=== PATIENT | male | born 1955 | race Caucasian/White ===

== ENCOUNTER 2023-07-15 18:45 | Emergency (ER) | payer MEDICARE, SELFPAY ==
--- NOTE | ~2023-07-15 | CT_ITS ---
EXAMINATION: CT ABDOMEN AND PELVIS WITH CONTRAST CLINICAL INFORMATION: FL upper quadrant abdominal pain COMPARISON: None available. TECHNIQUE: Multidetector volumetric images were obtained from the superior aspect of the liver through the pubic symphysis following administration 85 mL of Omnipaque 350 intravenous contrast. Sagittal and coronal reformatted images were obtained on the technologist's workstation. Oral contrast: No This CT examination was performed using dose optimization techniques as appropriate, variously including the following: *Automated exposure control *Adjustment of mA and/or kV according to patient size (this includes techniques or standardized protocols for targeted exams where dose is matched to indication/reason for exam; i.e. extremities or head) *Use of iterative reconstruction technique DLP: 579 mGy-cm FINDINGS: LUNG BASES: The visualized lung bases are unremarkable. There is moderate coronary artery calcification. LIVER, GALLBLADDER, AND BILIARY TREE: The liver is normal in size, shape, and attenuation. No focal hepatic lesion or biliary ductal dilatation is present. The gallbladder is unremarkable with no evidence of radiopaque gallstones, gallbladder wall thickening, or obvious pericholecystic inflammatory changes. PANCREAS: Unremarkable. SPLEEN: Unremarkable. ADRENAL GLANDS: There is a 7 mm nodular changes in left adrenal gland. The right adrenal gland is unremarkable. KIDNEYS AND URETERS: The kidneys are normal in size, shape, and attenuation. No hydronephrosis, hydroureter, or calculi seen. No perinephric stranding. There is a 1 cm hypodensity in the midpole left kidney measuring -4 Hounsfield units likely small cyst. BLADDER: The bladder is nondistended with thickening of the posterior wall and the base. The posterolateral measures 7 mm in the base measures 1.4 cm thick. GASTROINTESTINAL TRACT: There is a large amount of stool seen in the colon without significant distention. The small bowel loops are normal caliber. Appendix is normal caliber. ABDOMINAL WALL: No significant hernia is appreciated. A prominent left inguinal canal containing descending/sigmoid colon in the proximal inguinal ring is noted. LYMPH NODES: Normal. VASCULAR: There is aortic graft stent starting from the mid abdominal aorta and extending to the common iliac arteries. Known mild aneurysmal dilatation of mid abdominal aorta measuring 3.3 x 3.4 cm on axial slice 41/95 is noted. PELVIC VISCERA: The prostate gland appears minimally enlarged extending into the base of bladder. OSSEOUS STRUCTURES: There is L5 superior endplate deformity of indeterminate age. CT/CT abdomen pelvis w IV con IMPRESSION: 1. No acute intra-abdominal process seen. 2. Moderate constipation. Moderate stool is seen within the transverse colon and along the hepatic and splenic flexure. 3. Mild prostate enlargement extending into the base of bladder. There is thickening of base and posterior bladder wall. Recommend cystoscopy for further evaluation. 4. Abdominal aortic aneurysm with aortic graft stent in place. 5. Small left adrenal 7 mm nodule. 6. Left inguinal hernia inguinal canal hernia containing junction of descending and sigmoid colon destini the proximal inguinal ring Fleischner guidelines were followed.
[2023-07-15 19:37] VITALS: BP 137/75; PULSE 66; RESP 18; TEMP 36.9; O2SAT 96; BMI 24.3
--- NOTE | 2023-07-15 19:38 | ED.GENADULT ---
HPI - General Adult General Chief complaint: Abdominal Pain Stated complaint: needs ct per dr Time Seen by Provider: 07/15/23 20:53 Source: patient, RN notes reviewed and old records reviewed Mode of arrival: ambulatory Limitations: no limitations History of Present Illness HPI narrative: 68-year-old male with past medical history significant for coronary artery disease, CVA, diabetes presents for evaluation of left upper abdominal pain. Patient reports his pain started 5 days ago His pain is in his left upper abdomen it does not radiate He denies any chest pain, cough, shortness of breath He describes the pain as burning Denies any nausea or vomiting but endorses constipation Patient reports a history of appendectomy but denies any other abdominal surgical history He saw his primary doctor today who referred him to the ER for ?a CT scan. Patient took lactulose for constipation without any improvement is constipation. Related Data Previous Rx's Medication Instructions Recorded peg 3350-electrolytes 236 240 ml PO Q10M PRN constipation 07/15/23 gram-22.74 gram-6.74 gram-5.86 #4,000 mL gram solution (GaviLyte-G) polyethylene glycol 3350 17 17 g PO DAILY PRN constipation 07/15/23 gram/dose oral powder (Miralax) #238 grams Allergies Allergy/AdvReac Type Severity Reaction Status Date / Time No Known Allergies Allergy Verified 07/15/23 19:43 Review of Systems Constitutional: Constitutional: Denies chills, Denies fever(s) and Denies headache(s) ENT: Denies headache(s) Gastrointestinal: Gastrointestinal: Reports abdominal pain, Reports constipation, Denies nausea and Denies vomiting Musculoskeletal: Musculoskeletal: Denies back pain Integumentary/Breasts: Skin/Breast: Denies rash Neurologic: Denies headache(s) PMFSH Social History Social History Advance Directives: No Advance Directives Information Provided: Yes Physical Exam ED Vital Signs: Vital Signs - 24 hr 07/15/23 19:37 07/15/23 20:31 07/15/23 22:17 Temperature 98.5 F 98.3 F Pulse Rate 66 67 56 Respiratory Rate 18 17 16 Blood Pressure 137/75 152/76 H 118/60 Pulse Oximetry 96 95 96 Oxygen Delivery Method Room Air Room Air Room Air BMI result Body Mass Index 24.3 Const General: healthy appearing, comfortable, no acute distress, alert and awake Nutritional Appearance: well nourished Orientation/consciousness: patient oriented x3 HENMT Head: Yes normocephalic and Yes atraumatic Eyes Eyelids: Yes eyelids normal Conjunctivae: conjunctivae normal Sclerae: sclerae normal Corneas: corneas normal Pupils: Equal, round and reactive pupils present EOM: EOMs intact bilaterally Neck Neck: Yes full ROM Resp Effort & Inspection: normal respiratory effort, able to speak in complete sentences and not labored Cardio Rate: regular rate Rhythm: regular rhythm GI Inspection: No distended Palpation (GI): Soft to palpation, not firm, Tenderness to palpation present (GI) in the LLQ, in the LUQ and in the RUQ; not in the RLQ and Guarding due to palpation present (GI) Auscultation: normoactive bowel sounds Skin General skin exam: no rashes or lesions noted and elasticity normal Neuro General: patient oriented x3 Cranial nerves: Yes Equal, round and reactive pupils present and Yes Bilaterally intact EOM present Cognition (Neuro): normal cognition Extrem Other: Moving all extremities well without any obvious deformities Course Course Course Narrative: RME: 68 yo M w/PMHx CABG, CVA, DM, On Plavix c/o LUQ abdominal pain since Wednesday w/constipation w/o BM. Is passing flatus. Denies vomiting, fever or urine sx, melena abdomen soft w/LUQ ttp EKG, labs, UA, CT ordered Full HPI, ROS and PE to be performed by primary ED provider. Reevaluation(s) Reevaluation #1: Patient's CT scan finding discussed with the patient, he will be discharged with Sharif Time: 23:27 Medications Administered Discontinued Medications Generic Name Dose Route Start Last Admin Trade Name Freq PRN Reason Stop Dose Admin Sodium Chloride 1,000 mls @ 999 mls/hr 07/15/23 21:15 07/15/23 22:26 Ns IV 07/15/23 22:15 Infused .Q1H1M SLADE Infusion Iohexol 100 ml 07/15/23 21:08 07/15/23 21:09 Iohexol 350 Mg/Ml 100 Ml Infus..Btl IV 07/15/23 21:09 85 ml ONCE ONE Administration Morphine Sulfate 4 mg 07/15/23 21:02 07/15/23 21:16 Morphine Sulfate 4 Mg/Ml Cartridge IVPUSH 07/15/23 21:03 4 mg ONCE ONE Administration Protocol Ondansetron HCl 4 mg 07/15/23 21:02 07/15/23 21:16 Ondansetron Hcl 4 Mg/2 Ml Vial IVPUSH 07/15/23 21:03 4 mg ONCE ONE Administration Medical Decision Making Medical Decision Making [facility] Narrative: 60-year-old male presents for evaluation of severe abdominal pain. He is quite tender on exam with guarding. There is no abdominal distension of firmness, however will get a CT scan of the abdomen pelvis. The patient had bowel movement 5 days in denies passing sinus. There is concern for obstruction. Differential Diagnosis Differential Diagnoses: The differential diagnosis associated with the presentation includes Constipation Small bowel obstruction Ileus Colitis Diverticulitis Bowel perforation Admission/Observation Consideration of admission/observation: Escalation of care including admission/observation considered However CT scan did not show any surgical pathology or severe medical pathology Lab Data [facility] Lab Attestation statement: I reviewed the patient's lab results. No leukocytosis working 8.6. Mild anemia hemoglobin 12.1 and hematocrit 34.9. Electrolytes within normal limits. CO2 is slightly elevated test 30. Patient's BUN is 27 with a creatinine of 94. 07/15/23 20:23 07/15/23 20:23 Labs: Lab Results 07/15/23 07/15/23 07/15/23 Range/Units 20:23 20:23 20:23 WBC 8.6 (4.8-10.8) X10*3/uL RBC 4.07 L (4.60-5.80) X10*6/uL Hgb 12.1 L (14.0-18.0) g/dl Hct 34.9 L (42.0-52.0) % MCV 85.7 (80.0-98.0) fL MCH 29.7 (27.0-33.0) pg MCHC 34.7 (31.0-36.0) g/dl RDW 12.5 (11.0-16.0) % Plt Count 138 L (160-400) X10*3/uL MPV 10.2 (9.4-12.4) fL Immature Gran % (Auto) 0.2 (0.0-0.4) % Neut % (Auto) 59.1 (45-73) % Lymph % (Auto) 28.5 (20-40) % [place] % (Auto) 10.4 (2-11) % Eos % (Auto) 1.5 (0-4) % Baso % (Auto) 0.3 (0-2) % Lymph # (Auto) 2.5 (1.2-4.9) X10*3/uL [place] # (Auto) 0.9 (0.1-1.2) X10*3/uL Eos # (Auto) 0.1 (0.0-0.4) X10*3/uL Baso # (Auto) 0.0 (0.0-0.2) X10*3/uL Abs Immat Gran (auto) 0.02 (0.00-0.03) X10*3/uL Absolute Neuts (auto) 5.1 (2.0-8.3) x10*3/uL Absolute Nucleated RBC 0.000 (0.0-0.012) X10*3/uL Nucleated RBC % (auto) 0.0 (0.0-0.2) /100WBC PT 13.0 (11.1-13.3) SEC INR 1.1 (0.9-1.1) Sodium 137 (135-145) mmol/L Potassium 4.5 (3.3-5.1) mmol/L Chloride 101 (96-108) mmol/L Carbon Dioxide 30 H (22-29) mmol/L Anion Gap 11 L (12-20) BUN 27 H (9-16) mg/dL Creatinine 0.94 (0.5-1.4) mg/dL Estim Creat Clear Calc 82.5 Estimated GFR > 60 Random Glucose 112 (60-115) mg/dL Calcium 9.6 (8.4-10.2) mg/dL Magnesium 2.1 (1.6-2.6) mg/dL Total Bilirubin 0.3 (0.0-1.0) mg/dL Direct Bilirubin 0.1 (0.0-0.5) mg/dL AST 16 (5-37) U/L ALT 13 (0-40) U/L Alkaline Phosphatase 74 (39-117) U/L Total Protein 7.2 (6.5-8.0) g/dL Albumin 4.1 (3.5-5.0) g/dL Lipase 13 (8-78) U/L Urine Color Urine Appearance Urine pH (5.0-9.0) Ur Specific Crystal (1.005-1.025) Urine Protein (Neg-Trace) mg/dL Urine Glucose (UA) (Negative) mg/dL Urine Ketones (Negative) mg/dL Urine Blood (Negative) Urine Nitrite (Negative) Ur Leukocyte Esterase (Negative) Urine RBC (0-2) /HPF Urine WBC (0-5) /HPF Ur Squamous Epith Cells (0-2) /HPF Urine Bacteria (None Seen) Hyaline Casts (0-2) /LPF 07/15/23 Range/Units 20:50 WBC (4.8-10.8) X10*3/uL RBC (4.60-5.80) X10*6/uL Hgb (14.0-18.0) g/dl Hct (42.0-52.0) % MCV (80.0-98.0) fL MCH (27.0-33.0) pg MCHC (31.0-36.0) g/dl RDW (11.0-16.0) % Plt Count (160-400) X10*3/uL MPV (9.4-12.4) fL Immature Gran % (Auto) (0.0-0.4) % Neut % (Auto) (45-73) % Lymph % (Auto) (20-40) % [place] % (Auto) (2-11) % Eos % (Auto) (0-4) % Baso % (Auto) (0-2) % Lymph # (Auto) (1.2-4.9) X10*3/uL [place] # (Auto) (0.1-1.2) X10*3/uL Eos # (Auto) (0.0-0.4) X10*3/uL Baso # (Auto) (0.0-0.2) X10*3/uL Abs Immat Gran (auto) (0.00-0.03) X10*3/uL Absolute Neuts (auto) (2.0-8.3) x10*3/uL Absolute Nucleated RBC (0.0-0.012) X10*3/uL Nucleated RBC % (auto) (0.0-0.2) /100WBC PT (11.1-13.3) SEC INR (0.9-1.1) Sodium (135-145) mmol/L Potassium (3.3-5.1) mmol/L Chloride (96-108) mmol/L Carbon Dioxide (22-29) mmol/L Anion Gap (12-20) BUN (9-16) mg/dL Creatinine (0.5-1.4) mg/dL Estim Creat Clear Calc Estimated GFR Random Glucose (60-115) mg/dL Calcium (8.4-10.2) mg/dL Magnesium (1.6-2.6) mg/dL Total Bilirubin (0.0-1.0) mg/dL Direct Bilirubin (0.0-0.5) mg/dL AST (5-37) U/L ALT (0-40) U/L Alkaline Phosphatase (39-117) U/L Total Protein (6.5-8.0) g/dL Albumin (3.5-5.0) g/dL Lipase (8-78) U/L Urine Color Yellow Urine Appearance Cloudy Urine pH 5.5 (5.0-9.0) Ur Specific Crystal 1.010 (1.005-1.025) Urine Protein 30 (1+) H (Neg-Trace) mg/dL Urine Glucose (UA) Negative (Negative) mg/dL Urine Ketones Negative (Negative) mg/dL Urine Blood Negative (Negative) Urine Nitrite Negative (Negative) Ur Leukocyte Esterase Negative (Negative) Urine RBC 0-2 (0-2) /HPF Urine WBC 0-5 (0-5) /HPF Ur Squamous Epith Cells 0-2 (0-2) /HPF Urine Bacteria None Seen (None Seen) Hyaline Casts 3-5 (0-2) /LPF Radiology Impression Discussion of test interpretation with radiology: I have reviewed the radiologist's reading. (Moderate constipation along the hepatic flexure, transverse colon and splenic flexure) Discharge Plan Discharge Clinical Impression: Constipation Patient Disposition: Home, Self-Care Instructions: Constipation (ED) Additional Instructions: Your CT scan shows a moderate amount of constipation along your upper abdomen. You may take MiraLax every night for the next 2 weeks Use GoLYTELY into the have 2 soft bowel movements Stop using the lactulose for constipation while you are taking the GoLYTELY Follow-up with your GI doctor, call tomorrow to schedule appointment Prescriptions: New peg 3350-electrolytes [GaviLyte-G] 236-22.74-6.74 -5.86 gram recon soln 240 ml PO Q10M PRN (Reason: constipation) Qty: 4000 0RF Rx Instructions: until fecal effluent is clear polyethylene glycol 3350 [Miralax] 17 gram/dose powder 17 g PO DAILY PRN (Reason: constipation) Qty: 238 0RF
--- NOTE | 2023-07-15 19:42 | ECG_ITS ---
Test Reason : ABDOMINAL PAIN Blood Pressure : / mmHG Vent. Rate : 067 BPM Atrial Rate : 067 BPM P-R Int : 224 ms QRS Dur : 108 ms QT Int : 434 ms P-R-T Axes : 055 017 111 degrees QTc Int : 458 ms Sinus rhythm with 1st degree A-V block ST & T wave abnormality, consider lateral ischemia Abnormal ECG No previous ECGs available Referred By: Marina Watkins Electronically Signed By:MATTHEW PIERSON
--- NOTE | 2023-07-15 20:27 | PC.NURSE ---
pt bedded to room 21, rolled gold plater at bedside for ekg. pt significant other sts this is an erronious order, were not here for his heart , attempts made at education regarding hospital standard order sets and tests due to pt cardiac history. ekg obtained, pt significant other dictacting instructions to this rn and rolled gold plater at bedside, telling staff the ekg looks good and i already told you its not his heart again attempted to educate and explain process, she remains adament and argumentative with this rn. attempted to place pt on jockey's agent, sts this is not necessary since its not his heart. were here for his stomach.
[2023-07-15 20:29] LABS: MANUAL DIFF FLAG NO
[2023-07-15 20:31] VITALS: BP 152/76; PULSE 67; RESP 17; TEMP 36.8; O2SAT 95
[2023-07-15 20:32] LABS: Basophils Percent Auto 0.3 % (0-2); Eosinophils Absolute Auto 0.1 X10*3/uL (0.0-0.4); Eosinophils Percent Auto 1.5 % (0-4); Hematocrit 34.9 % (42.0-52.0); Hemoglobin 12.1 g/dl (14.0-18.0); Imm Gran Abs Auto 0.02 X10*3/uL (0.00-0.03); Imm Gran Pct Auto 0.2 % (0.0-0.4); Lymphocytes Absolute Auto 2.5 X10*3/uL (1.2-4.9); Lymphocytes Percent Auto 28.5 % (20-40); Mean Corpuscular HGB Conc 34.7 g/dl (31.0-36.0); Mean Corpuscular Hemoglobin 29.7 pg (27.0-33.0); Mean Corpuscular Volume 85.7 fL (80.0-98.0); Mean Platelet Volume 10.2 fL (9.4-12.4); Monocytes Absolute Auto 0.9 X10*3/uL (0.1-1.2); Monocytes Percent Auto 10.4 % (2-11); Neutrophils Absolute Auto 5.1 x10*3/uL (2.0-8.3); Neutrophils Percent Auto 59.1 % (45-73); Platelet Count 138 X10*3/uL (160-400); Red Blood Count 4.07 X10*6/uL (4.60-5.80); Red Cell Distribution Width 12.5 % (11.0-16.0); White Blood Count 8.6 X10*3/uL (4.8-10.8)
[2023-07-15 20:39] LABS: INTERNATIONAL NORM RATIO 1.1 (0.9-1.1)
[2023-07-15 20:49] LABS: Alanine Aminotransferase 13 U/L (0-40); Albumin Level 4.1 g/dL (3.5-5.0); Alkaline Phosphatase 74 U/L (39-117); Anion Gap 11 (12-20); Aspartate Amino Transferase 16 U/L (5-37); Bilirubin Direct 0.1 mg/dL (0.0-0.5); Bilirubin Total 0.3 mg/dL (0.0-1.0); Blood Urea Nitrogen 27 mg/dL (9-16); Calcium 9.6 mg/dL (8.4-10.2); Carbon Dioxide 30 mmol/L (22-29); Chloride 101 mmol/L (96-108); Creatinine Clr Calc Pharmacy 82.5; Estimated Glomerular Filt Rate > 60; Glucose Random 112 mg/dL (60-115); Lipase 13 U/L (8-78); Magnesium 2.1 mg/dL (1.6-2.6); Potassium 4.5 mmol/L (3.3-5.1); Sodium 137 mmol/L (135-145); Total Protein 7.2 g/dL (6.5-8.0)
[2023-07-15 21:04] LABS: Appearance Urine Cloudy; Color Urine Yellow; Glucose Urine UA Negative (Negative); Leukocyte Esterase Urine Negative (Negative); Nitrite Urine Negative (Negative); PH 5.5 (5.0-9.0); UMIC TRIGGER UACC YES; Urine Blood Negative (Negative); Urine Ketones Negative (Negative); Urine Protein 30 (1+) mg/dL (Neg-Trace)
[2023-07-15] MEDS: iohexoL 350 MG/ML 100 ML INFUS..BTL IV (21:09)
[2023-07-15] MEDS: Morphine Sulfate 4 MG/ML CARTRIDGE IVPUSH (21:16)
[2023-07-15] MEDS: ondansetron HCL 4 MG/2 ML VIAL IVPUSH (21:16)
[2023-07-15] MEDS: 0.9 % Sodium Chloride 1,000 ML 999 ML IV (21:17)
[2023-07-15 21:26] LABS: Bacteria Urine None Seen (None Seen); RBC Urine 0-2 /HPF (0-2); Squamous Epithelial Cell Urine 0-2 /HPF (0-2); WBC Urine 0-5 /HPF (0-5)
[2023-07-15 22:17] VITALS: BP 118/60; PULSE 56; RESP 16; O2SAT 96
== END 2023-07-16 01:32 | disposition home or self-care (01) ==
PROVIDERS: Physician Assistant; Emergency Provider Emergency Medicine
DX: K59.00 Constipation, unspecified (principal); R10.12 Left upper quadrant pain; E11.9 Type 2 diabetes mellitus without complications; Z95.1 Presence of aortocoronary bypass graft
CPT/HCPCS: 36415; 74177; 80048; 80076; 81001; 81003; 83690; 83735; 85025; 85610; 93005; 96361; 96374; 96375; 99284; 99285; J2270; J2405; Q9967

== ENCOUNTER → 2024-11-07 23:59 | Outpatient (BNV) | payer MEDICARE, MEDICAID, SELFPAY | PROVIDERS: PCP Student in an Organized Health Care Education/Training Program; Visit Provider Internal Medicine | DX: I50.23 Acute on chronic systolic (congestive) heart failure (principal) | CPT/HCPCS: 99223 ==